=== PATIENT | female | born 1975 | race Caucasian/White ===

== ENCOUNTER 2024-02-20 18:07 | Emergency (ER) | payer BC, SELFPAY ==
[2024-02-20] VITALS (8 sets, daily range): BP systolic 126–143; BP diastolic 73–93; BMI 26.6
--- NOTE | 2024-02-20 18:56 | ED.MUSCINJ ---
HPI-Injury
<Ghazal Doyle SIGNS AND DISPLAYS SALES REPRESENTATIVE - Last Filed: 02/23/24 12:10>
General
Chief Complaint: Musculo-Skeletal Complaint
Source: patient
Exam Limitations: none
Time Seen by Provider: 02/20/24 18:56
Nursing documentation reviewed up to this point in time: agreed with
History of Present Illness-Injury
Initial Injury comments:
48 yo female taking trash out within past 2 hours, slipped on ice, fell, injuring right wrist. Denies any other injury
Past History
<Ghazal Doyle, SIGNS AND DISPLAYS SALES REPRESENTATIVE - Last Filed: 02/23/24 12:10>
Past History
ED Past Medical History: None
ED Past Surgical History:
Social History
Tobacco: Non-smoker
Alcohol: Occasional
Personal:
Living: with family
Review of Systems
<Ghazal Doyle, SIGNS AND DISPLAYS SALES REPRESENTATIVE - Last Filed: 02/23/24 12:10>
Review of Systems
Allergies reviewed?: Yes
All Other Systems: ROS reviewed and negative except as documented in HPI and ROS
Musculoskeletal: Reports other (pain, deformity right wrist); Denies neck pain or back pain
Skin: Reports no symptoms
Neurological: Denies weakness or numbness
Phy Exam
<Ghazal Doyle, SIGNS AND DISPLAYS SALES REPRESENTATIVE - Last Filed: 02/23/24 12:10>
Physical Exam
Physical Exam:
GENERAL: No acute distress. A&Ox3.
CONSTITUTIONAL: Afebrile.
RESPIRATORY: Regular respirations, nonlabored, lungs clear.
CARDIOVASCULAR: Regular rate and rhythm, no murmurs, no rubs.
GI: Soft, nontender
MUSCULOSKELETAL: Obvious deformity right wrist. Well perfused.
SKIN: Warm, dry, pink
PSYCH: Normal mood and affect. Well kept, interactive and appropriate
NEUROLOGIC: Awake, alert and oriented. No focal neurological deficits
Injury Course
<Ghazal Doyle SIGNS AND DISPLAYS SALES REPRESENTATIVE - Last Filed: 02/23/24 12:10>
Orders/Labs/Results
Orders:
Orders
02/20/24 18:07
Wrist, Right 3 Views [CR Wrist - Right Min 3 Views] Urgent
Comment:
Reason For Exam: pain
02/20/24 19:57
CR Wrist - Right Min 2 Views Urgent
Reason For Exam: post reduction
02/20/24 20:40
Propofol [Diprivan] 20 ml .ROUTE .STK-MED
02/20/24 21:04
Wrist, Right 2 Views CR [CR Wrist - Right Min 2 Views] Urgent
Comment:
Reason For Exam: post reduction
<Rosmery Gordon MD - Last Filed: 02/20/24 21:32>
Orders/Labs/Results
Orders:
Orders
02/20/24 18:07
Wrist, Right 3 Views [CR Wrist - Right Min 3 Views] Urgent
Comment:
Reason For Exam: pain
02/20/24 19:57
CR Wrist - Right Min 2 Views Urgent
Reason For Exam: post reduction
02/20/24 20:40
Propofol [Diprivan] 20 ml .ROUTE .STK-MED
02/20/24 21:04
Wrist, Right 2 Views CR [CR Wrist - Right Min 2 Views] Urgent
Comment:
Reason For Exam: post reduction
Procedures
<Ghazal Doyle SIGNS AND DISPLAYS SALES REPRESENTATIVE - Last Filed: 02/23/24 12:10>
Moderate Sedation
ASA Risk Score: Class I
Chart and allergies reviewed: Yes
Consent for anesthesia obtained: Yes
Time out completed (validating right patient & procedure): Yes
Moderate Sedation Start Time(when first medication is given): 20:52
History of difficult intubation: No
Airway free of obstruction: Yes
Patient has a gag reflex: Yes
Patient is able to open mouth: Yes
Patient has no dentures: Yes
Patient has no loose teeth: Yes
Medication administered by Provider during Moderate Sedation: IV Propofol (mg) (130 mg)
Total dose administered: 130
Time drug administered: 20:52
Moderate Sedation Procedure End Time: 21:12
Comment: Pt awake, responding appropriately
Splinting/Sling Placement
Right Wrist:
Procedure completed by: Mai Doyle NP
Pre-splint extermity exam: neurovascular intact
Type of splint: sugar-tong
Splint material: fiberglass
Type of sling: sling fitted
Normal distal neurovascular exam?: Yes
Joint/Fracture Reduction
Right Wrist:
Indication for procedure:: reduction of distal radial fracture
Procedure completed by: Brooklyn Doyle NP
Anesthesia/sedation: 1% Lidocaine and Regional block (hematoma block)
Injury was: closed
Further treatement: needs further treatment
Post reduction exam: stable
Capillary Refill: normal
Normal distal neurovascular exam?: Yes
Peripheral Pulses: radial (right): 2+
Digital Block
Location of injection for digital block: other (dorsally, just proximal to the fracture, hematoma block)
Indiction for Digital Block: orthopedic procedure
Was sensory exam normal prior to exam?: intack pin prick
Type of anesthesia: 1% Lidocaine w/o EPI
Complications: none- good anesthesia
<Ghazal Doyle, SIGNS AND DISPLAYS SALES REPRESENTATIVE - Last Filed: 02/23/24 12:10>
MDM/Problems Addressed
MDM/Problems Addressed:
48 yo female taking trash out within past 2 hours, slipped on ice, fell, injuring right wrist. Denies any other injury
Xray: Comminuted, displaced distal radial fracture with posterior displacement and angulation of the distal fracture fragment as well as approximately 2.2 cm of foreshortening.
Pt tolerated procedure well.
Post reduction xray: not well reduced, consulted orthopedics Dr. Elizondo, sent pictures pre and post reduction.
He states moderate sedation needed, pt initially did not want this but now OK with it.
With pt permission, consent signed by and in chart
9:15 p.m.
Reduction attempted a second time
Pt awake, appropriate
Post reduction films: much better position
Dr. Gordon at bedside during procedure.
She will assume care from this point.
<Ghazal Doyle, SIGNS AND DISPLAYS SALES REPRESENTATIVE - Last Filed: 02/23/24 12:10>
*Critical Care Note
Total Time (30-74mins, 75-104mins- exclusive of procedures): Not Applicable
ED Attending Note
<Ghazal Doyle SIGNS AND DISPLAYS SALES REPRESENTATIVE - Last Filed: 02/23/24 12:10>
-
Portions of this chart may have been created with voice recognition software.� Occasional wrong word or��sound alike� substitutions may have occurred due to the inherent limitations of voice recognition software.
<Rosmery Gordon MD - Last Filed: 02/20/24 21:32>
ED Attending Note
I performed the substantive portion of visit, reviewed & personally made and approve the management plan that is documented in note by myself or JOSUE.: Yes
I performed a history and physical exam of patient and discussed management with resident, I reviewed resident's note and agree with documented findings and plan of care.: Yes
ED Attending Note:
I personally was part of the patient's conscious sedation and closed reduction. Patient has strong pulses and excellent cap refill and sensation in her bilateral upper extremities. There is no sign of head injury.
Discharge Plan
Departure
Patient Disposition: Home (Routine Discharge)
Patient with high blood pressure during this ER visit?: No
Condition: Good
Discharge Problem:
Closed fracture of right wrist
Instructions: Wrist Fracture (DC), Using Cold for Pain, MODERATE SEDATION ADULT
Referrals:
Jeremy Elizondo MD [Active] - Call in 1-3 days for appt
Activity Restrictions/Additional Instructions:
As we discussed, keep the splint on and wear the sling when up and around until further instructed by the Orthopedic doctor. Call first thing morning to make next available appointment.
Tylenol or Ibuprofen as needed for pain.
When resting, elevate the arm on a pillow to the level of your heart.
Cold compress 20 minutes off and on today and tomorrow.
Return here immediately for paleness in the fingers, pain that gets worse and worse despite Tylenol or Ibuprofen, numbness in fingers, or anything that concerns you.
Interventions
Interventions:
*Risk Screen - Suicide Last Done: 02/20/24 18:13
*General Assessment Last Done: 02/20/24 19:06
*Neglect/Abuse Screening Last Done: 02/20/24 18:13
*ED COVID-19 Vaccine History Last Done: 02/20/24 19:06
*Nursing Disposition Last Done: 02/20/24 21:44
ED-Musculoskeletal Assessment Last Done: 02/20/24 19:06
Discharge Date and Time
Discharge Date/Time: 02/20/24 21:45
Print Language: PORTUGUESE
== END 2024-02-20 21:45 | disposition home or self-care (01) ==
LOC: EMR 18:07
PROVIDERS: EMERGENCY PHYSICIAN Student in an Organized Health Care Education/Training Program
DX: S52.591A Other fractures of lower end of right radius, initial encounter for closed fracture (principal); W00.0XXA Fall on same level due to ice and snow, initial encounter; Z88.5 Allergy status to narcotic agent; Z88.8 Allergy status to other drugs, medicaments and biological substances
CPT/HCPCS: 25605; 99285; 99152; 73100; 73110

== ENCOUNTER 2024-02-27 06:17 | Day surgery (SDC) | payer BC, SELFPAY ==
[2024-02-27] VITALS (7 sets, daily range): BP systolic 121–152; BP diastolic 67–98; BMI 22.8
[2024-02-27] MEDS: TYLENOL 1000 MG PO (12:34)
[2024-02-27] MEDS: NORMOSOL-R/PLASMALYTE-A 1000 IV (12:34)
--- NOTE | 2024-02-27 16:32 | W.IMMPOSTOP ---
Surgical Immed Post Op Note
-
Primary Surgeon: Jeremy Elizondo MD
Assisting Surgeon:
Pre-op Diagnosis: right distal radius fracture
Post-op Diagnosis: right distal radius fracture
Procedure Performed: right distal radius open reduction and internal fixation
Anesthesia Type: general with regional block
Specimen / Cultures: none
Estimated Blood Loss: 20mL
Complications: none apparent
Operative Findings: extra-articular fracture with dorsal and radial comminution
Tourniquet time: 107 minutes
Implants: Analilia VariAx 2 volar distal radius plate, 4 hole intermediate width
Operative dictation #: [id number]
== END 2024-02-27 17:50 | disposition home or self-care (01) ==
LOC: SDS 06:17
PROVIDERS: ATTENDING PHYSICIAN Student in an Organized Health Care Education/Training Program
DX: S52.551A Other extraarticular fracture of lower end of right radius, initial encounter for closed fracture (principal); S52.611A Displaced fracture of right ulna styloid process, initial encounter for closed fracture; W19.XXXA Unspecified fall, initial encounter
CPT/HCPCS: 25607; 73110; C1713